=== PATIENT | female | born 1945 | race African-American/Black ===

== ENCOUNTER 2016-06-05 11:39 | Emergency (ER) | payer MEDICARE, BC ==
[2016-06-05] MEDS ORDERED: SODIUM CHLORIDE 0.9% 1,000 ML ONE (12:56)
[2016-06-05] MEDS ORDERED: ASPIRIN 81 MG CHEW TAB ONE (12:56)
== END 2016-06-05 16:53 | disposition home or self-care (01) ==
LOC: ER 11:39
DX: R07.2 Precordial pain (principal); R20.2 Paresthesia of skin; Z87.891 Personal history of nicotine dependence; E03.9 Hypothyroidism, unspecified; H04.129 Dry eye syndrome of unspecified lacrimal gland
CPT/HCPCS: 36415; 70450; 71010; 80053; 81001; 82550; 83735; 84484; 85025; 85610; 85730; 87088; 93005; 96360